=== PATIENT | male | born 1970 | race African-American/Black ===

== ENCOUNTER 2022-07-14 01:16 | Inpatient (IN) | payer OTHER ==
[2022-07-14 02:01] VITALS: BMI 25.8
[2022-07-14] MEDS ORDERED: NICOTINE POLACRILEX 2 MG GUM BUC PRN (02:35)
[2022-07-14] MEDS ORDERED: DICYCLOMINE HCL 10 MG CAPSULE PO PRN (02:35)
[2022-07-14] MEDS ORDERED: BENZONATATE 200 MG CAPSULE PO PRN (02:35)
[2022-07-14] MEDS ORDERED: POLYETHYLENE GLYCOL (HEALTHYLAX) 3350 17 GM PACKET PO PRN (02:35)
[2022-07-14] MEDS ORDERED: NALOXONE HCL 0.4 MG/ML VIAL IM PRN (02:35)
[2022-07-14] MEDS ORDERED: IBUPROFEN 400 MG TABLET (FP) PO PRN (02:35)
[2022-07-14] MEDS ORDERED: ACETAMINOPHEN 325 MG TABLET (FP) PO PRN (02:35)
[2022-07-14] MEDS ORDERED: ONDANSETRON *ODT* 4 MG TABLET SL PRN (02:35)
[2022-07-14] MEDS ORDERED: MAGNESIUM HYDROX 2400MG/30ML ORAL SUSPENSION 30 ML CUP PO PRN (02:35)
[2022-07-14] MEDS ORDERED: guaiFENesin 600 MG TABLET.ER (FP) PO PRN (02:35)
[2022-07-14] MEDS ORDERED: BENZOCAINE/MENTHOL (CHLORASEPTIC ) LOZENGE MM PRN (02:35)
[2022-07-14] MEDS ORDERED: NALOXONE HCL (KLOXXADO) 8 MG SPRAY NS PRN (02:35)
[2022-07-14] MEDS ORDERED: BISMUTH SUBSALICYLATE 524 MG/30 ML PO PRN (02:35)
[2022-07-14] MEDS ORDERED: IBUPROFEN 600 MG TABLET (FP) PO PRN (02:35)
[2022-07-14] MEDS ORDERED: LOPERAMIDE HCL 2 MG CAPSULE PO PRN (02:35)
[2022-07-14] MEDS ORDERED: methaDONE HCL 10 MG TABLET (FOR DETOX USE ONLY) PO ONE (10:45)
[2022-07-14] MEDS: PRENATAL VITAMINS W/ FOLIC ACID TABLET (FP) PO SCH (10:59)
[2022-07-14] MEDS: NICOTINE 14 MG/24 HOURS TOPICAL PATCH TD SCH (10:59)
[2022-07-14] MEDS: cloNIDine HCL 0.1 MG TABLET PO PRN (22:07)
[2022-07-14] MEDS: METHOCARBAMOL 500 MG TABLET PO PRN (22:07)
[2022-07-14] MEDS: THIAMINE HCL 100 MG TABLET (FP) PO SCH (22:08)
[2022-07-14] MEDS: MELATONIN 5 MG TABLETS PO SCH (22:08)
[2022-07-15] MEDS: cloNIDine HCL 0.1 MG TABLET PO PRN (08:04)
[2022-07-15 09:29] LABS: HEMATOCRIT 37.8 % (35.4-49); HEMOGLOBIN 12.7 GM/dL (11.7-16.9); MCH 28.4 pg (25.7-33.7); MCHC 33.6 g/dl (32.0-35.9); MEAN CELL VOLUME 84.5 fl (80-96); MEAN PLT VOLUME 8.2 fl (7.5-11.1); PLATELET COUNT 211 10^3/uL (134-434); RBC 4.47 M/mm3 (4.00-5.60); RDW 14.6 % (11.9-15.9); WHITE BLOOD COUNT 4.4 K/mm3 (4.0-10.0)
[2022-07-15 09:33] LABS: POTASSIUM 4.1 mmol/L (3.5-5.1)
[2022-07-15 09:36] LABS: CALCIUM 9.9 mg/dL (8.5-10.1)
[2022-07-15 09:37] LABS: ALBUMIN 3.4 g/dl (3.4-5.0); BLOOD UREA NITROGEN 13.4 mg/dL (7-18)
[2022-07-15 09:40] LABS: CREATININE 0.8 mg/dL (0.55-1.3)
[2022-07-15 09:41] LABS: TOT PROT 6.8 g/dl (6.4-8.2)
[2022-07-15 09:42] LABS: BILIRUBIN,TOTAL 0.5 mg/dL (0.2-1)
[2022-07-15] MEDS: PRENATAL VITAMINS W/ FOLIC ACID TABLET (FP) PO SCH (10:05)
[2022-07-15] MEDS: METHOCARBAMOL 500 MG TABLET PO PRN (10:05)
[2022-07-15] MEDS: hydrOXYzine PAMOATE 25 MG CAPSULE (FP) PO PRN (10:05)
[2022-07-15] MEDS: NICOTINE 14 MG/24 HOURS TOPICAL PATCH TD SCH (10:05)
[2022-07-15] MEDS: THIAMINE HCL 100 MG TABLET (FP) PO SCH (22:24)
[2022-07-15] MEDS: MELATONIN 5 MG TABLETS PO SCH (22:24)
[2022-07-16] MEDS: hydrOXYzine PAMOATE 25 MG CAPSULE (FP) PO PRN ×2 (05:31→10:27)
[2022-07-16] MEDS ORDERED: methaDONE HCL 10 MG TABLET (FOR DETOX USE ONLY) PO ONE (10:00)
[2022-07-16] MEDS: METHOCARBAMOL 500 MG TABLET PO PRN (10:27)
[2022-07-16] MEDS: NICOTINE 14 MG/24 HOURS TOPICAL PATCH TD SCH (10:27)
[2022-07-16] MEDS: PRENATAL VITAMINS W/ FOLIC ACID TABLET (FP) PO SCH (10:28)
[2022-07-16] MEDS: MELATONIN 5 MG TABLETS PO SCH (22:38)
[2022-07-16] MEDS: THIAMINE HCL 100 MG TABLET (FP) PO SCH (22:38)
[2022-07-16] MEDS: MAG HYDROX/AL HYDROX/SIMETH 30 ML UNIT-DOSE CUP PO PRN (22:39)
[2022-07-17] MEDS: hydrOXYzine PAMOATE 25 MG CAPSULE (FP) PO PRN ×2 (06:22→21:54)
[2022-07-17] MEDS: METHOCARBAMOL 500 MG TABLET PO PRN ×2 (06:22→21:54)
[2022-07-17] MEDS ORDERED: cloNIDine HCL 0.1 MG TABLET PO ONE (06:55)
[2022-07-17] MEDS: MAG HYDROX/AL HYDROX/SIMETH 30 ML UNIT-DOSE CUP PO PRN ×2 (07:10→21:54)
[2022-07-17] MEDS: PRENATAL VITAMINS W/ FOLIC ACID TABLET (FP) PO SCH (10:22)
[2022-07-17] MEDS: NICOTINE 14 MG/24 HOURS TOPICAL PATCH TD SCH (10:24)
[2022-07-17] MEDS: MELATONIN 5 MG TABLETS PO SCH (21:53)
[2022-07-17] MEDS: THIAMINE HCL 100 MG TABLET (FP) PO SCH (21:53)
[2022-07-18] MEDS ORDERED: methaDONE HCL 10 MG TABLET (FOR DETOX USE ONLY) PO ONE (10:00)
[2022-07-18] MEDS ORDERED: PANTOPRAZOLE 20 MG TABLET PO SCH (10:00)
[2022-07-18] MEDS: PRENATAL VITAMINS W/ FOLIC ACID TABLET (FP) PO SCH (10:10)
[2022-07-18] MEDS: NICOTINE 14 MG/24 HOURS TOPICAL PATCH TD SCH (10:11)
[2022-07-18] MEDS: METHOCARBAMOL 500 MG TABLET PO PRN ×2 (10:12→22:07)
[2022-07-18] MEDS: MAG HYDROX/AL HYDROX/SIMETH 30 ML UNIT-DOSE CUP PO PRN ×3 (11:16→22:24)
[2022-07-18] MEDS: MELATONIN 5 MG TABLETS PO SCH (22:07)
[2022-07-18] MEDS: THIAMINE HCL 100 MG TABLET (FP) PO SCH (22:07)
[2022-07-18] MEDS: hydrOXYzine PAMOATE 25 MG CAPSULE (FP) PO PRN (22:07)
[2022-07-19 08:59] VITALS: BP 132/59; PULSE 66; RESP 18; TEMP 98.7
== END 2022-07-19 09:23 | disposition home or self-care (01) | DRG 773 ==
LOC: YASAS 01:16 → Y3N 02:57
PROVIDERS: ADMIT Allergy & Immunology; ATTEND Allergy & Immunology
PROC: HZ2ZZZZ Detoxification Services for Substance Abuse Treatment (ICD-10-PCS; principal; 2022-07-14)
DX: F11.23 Opioid dependence with withdrawal (principal); F12.10 Cannabis abuse, uncomplicated; F17.210 Nicotine dependence, cigarettes, uncomplicated; F19.24 Other psychoactive substance dependence with psychoactive substance-induced mood disorder; Z21 Asymptomatic human immunodeficiency virus [HIV] infection status; K21.9 Gastro-esophageal reflux disease without esophagitis; M21.331 Wrist drop, right wrist; R03.0 Elevated blood-pressure reading, without diagnosis of hypertension; Z86.19 Personal history of other infectious and parasitic diseases; Z59.00 Homelessness unspecified
CPT/HCPCS: 36415; 80053; 85027; 86593; 86780; 87635; 93005; 93010